=== PATIENT | male | born 1950 | race Caucasian/White ===

== ENCOUNTER 2017-03-25 10:18 | Day surgery (SDC) | payer OTHER ==
[2017-03-25] MEDS: NS 1,000 ML IV (10:30)
[2017-03-25] MEDS ORDERED: PROPOFOL 200 MG/20 ML VIAL As Ordered ×2 (12:01)
[2017-03-25] MEDS ORDERED: LIDOCAINE 2% INJ 100 MG/5 ML SDV (FOR ANES.) As Ordered (12:01)
== END 2017-03-25 12:36 | disposition home or self-care (01) ==
LOC: M OPP 10:18
DX: Z12.11 Encounter for screening for malignant neoplasm of colon (principal); Z86.010 Personal history of colon polyps; K62.1 Rectal polyp; K57.30 Diverticulosis of large intestine without perforation or abscess without bleeding; E78.5 Hyperlipidemia, unspecified; E03.9 Hypothyroidism, unspecified; E66.9 Obesity, unspecified; Z79.899 Other long term (current) drug therapy; Z80.1 Family history of malignant neoplasm of trachea, bronchus and lung; Z80.8 Family history of malignant neoplasm of other organs or systems
CPT/HCPCS: 45385

== ENCOUNTER → 2020-03-13 | Outpatient (CLI) | payer MEDICARE ==
[~2020-03-13] MED LIST: ADVI200T PO; ALEV220T26 PO; ATOR1TAB19; LEVO137T2; ZYRT10CA5 PO
--- NOTE | 2020-03-13 09:21 | REP ---
INDICATION: PAIN. COMPARISON: None. TECHNIQUE: 6 views. FINDINGS: Six views of the right knee demonstrate overall normal mineralization. Joint spaces are preserved. There is no evidence of erosive change or joint effusion. However, there are mottled radiolucencies in the subcortical bone of the medial femoral condyle of uncertain significance. Minimal lateral patellar spurring is noted on sunrise view. A small subcortical cyst is suspected in the superior aspect of the patella as well. No fracture or subluxation is seen. No opaque foreign body noted. IMPRESSION: Multiple subcortical cysts in the subcortical bone of the medial femoral condyle. These may be arthritis associated cyst but are of uncertain significance. Consider MRI scanning of the right knee for further evaluation. There is mild osteoarthritic spurring of the patella also noted.. <Electronically signed by Juvenal Porter > 03/13/20 [id number]
== END ==
LOC: M WUC 08:44
PROVIDERS: ATTEND Nurse Practitioner Adult Health
DX: M17.11 Unilateral primary osteoarthritis, right knee (principal); M85.68 Other cyst of bone, other site

== ENCOUNTER → 2020-04-01 | Outpatient (CLI) | payer MEDICARE ==
[2020-04-01 15:42] LABS: BLOOD UREA NITROGEN 25 MG/DL (7-18); CREATININE FOR GFR 0.92 MG/DL (0.70-1.30); GLOMERULAR FILTRATION RATE > 60.0 (>49)
== END ==
LOC: M PLALAB 11:04
PROVIDERS: ATTEND Physician Assistant Surgical
DX: M17.11 Unilateral primary osteoarthritis, right knee (principal)

== ENCOUNTER → 2020-06-07 | Outpatient (REF) | payer MEDICARE ==
[2020-06-07 13:58] LABS: BLOOD UREA NITROGEN 24 MG/DL (7-18); CREATININE FOR GFR 0.78 MG/DL (0.70-1.30); GLOMERULAR FILTRATION RATE > 60.0 (>49)
== END ==
LOC: M PLALAB 12:50
PROVIDERS: ATTEND Physician Assistant Surgical
DX: M17.11 Unilateral primary osteoarthritis, right knee (principal)

== ENCOUNTER → 2020-06-13 | Outpatient (CLI) | payer MEDICARE ==
--- NOTE | 2020-06-13 13:15 | REP ---
INDICATION: OA,R/O SUBCORTICAL CYSTS IN MEDIAL FEMORAL CONDYLE. COMPARISON: None TECHNIQUE: Pre and post contrast 3T MRI of the right was performed utilizing various sequences. Gadolinium utilized: 20 cc ProHance FINDINGS: The anterior and posterior horns of the lateral meniscus are within normal limits. There is grade 3 signal change seen with in a truncated posterior horn of the medial meniscus. The anterior horn is within normal limits. The anterior and posterior cruciate ligaments are intact. The quadriceps and patellar tendons are intact. T2 hyper signal is seen surrounding an intact medial collateral ligament. The lateral collateral ligament is intact. The medial and lateral patellar retinacula are intact. There is a joint effusion. There is no Flores's cyst. In the medial femoral condyle there are multiple areas of subchondral T2 hyper signal and enhancement. Posteriorly, well-demarcated focal areas of subchondral T2 hyper signal is seen with cortical irregularity. In the midportion there is 7 mm sized area of subchondral T2 hyper signal with corresponding cortical compression. Anteriorly, a tiny T2 hyper signal foci are present with more mild surrounding enhancement. In the subchondral proximal medial tibial metaphysis there is a 1.8 cm sized area of T2 hyper signal and enhancement. A 5 mm sized focus of T2 hyper signal is seen in the subchondral lateral patellar facet which minimally enhances after intravenous gadolinium administration. There is tricompartmental narrowing but particularly affecting the medial compartment. There is tricompartmental cartilaginous thinning and irregularity and again, particularly affecting the medial compartment. IMPRESSION: 1. Complex tear of the medial meniscus posterior horn and likely with a bucket-handle component due to meniscal truncation. 2. Subchondral cyst formation with edema and cortical irregularities involving the medial femoral condyle as described above. Acute osteochondral lesion of the midportion cannot be ruled out. 3. 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 4. Medial collateral ligament sprain. 5. There is a joint effusion. 6. Small focal area of subchondral edema seen involving the lateral patellar facet and likely secondary to chondromalacia. 7. Mild proximal medial tibial metaphyseal edema as described above. This is likely secondary to repeated micro trauma. 8. Other findings as described above. <Electronically signed by Otilio Gongora > 06/13/20 [id number]
== END ==
LOC: M PLARAD 10:32
PROVIDERS: ATTEND Physician Assistant Surgical
DX: M19.90 Unspecified osteoarthritis, unspecified site (principal)

== ENCOUNTER → 2020-08-28 | Outpatient (CLI) | payer MEDICARE ==
[~2020-08-28] MED LIST changes: +ASPI-551 PO; -ATOR1TAB19; +ATOR1TAB19 PO; +CETI10CH PO; +COLA100C5 PO; -LEVO137T2; +LEVO137T2 PO; +NAPR-837 PO; +OCUVTAB4 PO; +OXYC-517 PO; +TYLE650T38 PO; +VITA100054 PO
== END ==
LOC: M SOG 13:54
PROVIDERS: ATTEND Orthopaedic Surgery Adult Reconstructive Orthopaedic Surgery
DX: M25.561 Pain in right knee (principal); M25.562 Pain in left knee

== ENCOUNTER → 2020-09-25 | Outpatient (CLI) | payer MEDICARE ==
[~2020-09-25] MED LIST changes: -ASPI-551 PO; +ATOR1TAB19; -ATOR1TAB19 PO; -COLA100C5 PO; +LEVO137T2; -LEVO137T2 PO; -OXYC-517 PO
== END ==
LOC: M LABSMTC 11:09
PROVIDERS: ATTEND Anesthesiology
DX: Z01.818 Encounter for other preprocedural examination (principal); Z11.52 Encounter for screening for COVID-19

== ENCOUNTER 2020-09-30 10:29 | Day surgery (SDC) | payer MEDICARE ==
[~2020-09-30] VITALS: Ht 177.8 cm; Wt 94.7 kg
[~2020-09-30 10:29] MED LIST changes: +ACETAMINOPHEN 500 MG TAB PO ONE; -ATOR1TAB19; +ATOR1TAB19 PO; +CelecoXIB 400 MG CAP PO ONE; +GABAPENTIN 300 MG CAP PO ONE; -LEVO137T2; +LEVO137T2 PO; +LIDOCAINE 1% MDV 20ML VIAL SQ PRN; +LR 1,000 ML IV ONE; +ONDANSETRON 4MG/2ML VIAL IV ONE
[2020-09-30] MEDS ORDERED: propofoL 200 MG/20 ML VIAL As Ordered ONE ×2 (12:04→13:12)
[2020-09-30] MEDS ORDERED: fentaNYL 100 MCG/2 ML INJECTION (J3010) As Ordered ONE (12:04)
[2020-09-30] MEDS ORDERED: MIDAZOLAM INJ 2MG/2ML VIAL (J2250 PER 1MG) As Ordered ONE (12:05)
[2020-09-30] MEDS ORDERED: LIDOCAINE 2% 100MG/5ML SDV (FOR ANES.) As Ordered ONE (13:03)
[2020-09-30] MEDS ORDERED: BUPIVACAINE/EPIN 0.5% 30 ML VIAL As Ordered ONE (13:10)
[2020-09-30] MEDS ORDERED: EPINEPHrine 1MG/ML INJ 30ML MD-VIAL As Ordered ONE (13:10)
[2020-09-30] MEDS ORDERED: dexameTHASONE 4 MG/ML 1ML VIAL (J1100 PER 1MG) As Ordered ONE (13:50)
[2020-09-30] MEDS ORDERED: ePHEDrine INJ 50 MG/ML VIAL As Ordered ONE (13:56)
[2020-09-30] MEDS ORDERED: ePHEDrine SULFATE 25 MG/5 ML(5MG/ML) SYRINGE As Ordered ONE (13:56)
[2020-09-30] MEDS ORDERED: ONDANSETRON 4MG/2ML VIAL IV PRN (15:10)
[2020-09-30] MEDS ORDERED: METOCLOPRAMIDE INJ 10MG/2ML VIAL (J2765 PER 1) IV PRN (15:10)
[2020-09-30] MEDS ORDERED: fentaNYL 100 MCG/2 ML INJECTION (J3010) IV PRN (15:10)
[2020-09-30] MEDS ORDERED: PERCOCET 5MG/325MG TAB PO PRN (15:10)
[2020-09-30] MEDS ORDERED: LR 1,000 ML IV SCH ×2 (15:10→15:15)
[2020-09-30] MEDS ORDERED: oxyCODONE 5MG TAB PO PRN (15:15)
--- NOTE | 2020-09-30 15:23 | ROOPDOC ---
[facility] Report Of Operation Report of Operation DATE OF PROCEDURE: 09/30/20 PREPROCEDURE DIAGNOSES: Right knee meniscal tear POSTPROCEDURE DIAGNOSES: Right knee medial meniscal tear Grade 1 ACL Grade 4 medial compartment changes PROCEDURE: Right knee arthroscopy Medial meniscal debridement Debridement of scar tissue and plica Chondroplasty and microfracture to medial femoral condyle SURGEON: Ricardo Hidalgo MD PROCESSING TECHNICIAN: None ANESTHESIA: General ESTIMATED BLOOD LOSS: Less than 10 mL mL. COMPLICATIONS: No known complications. REMARKS: Tourniquet inflated for 40 minutes. PROCEDURE NOTE: The patient was seen in the preoperative area, Consent was reviewed or obtained and the appropriate extremity was marked. DESCRIPTION OF PROCEDURE: The patient was brought to the operating room and after a surgical pause, the anesthetic was induced. The patient was appropriately positioned supine on the operating room table. A tourniquet was applied to the appropriate thigh with appropriate padding. Side bolster was also applied to help with manipulation of the extremity during the procedure. The extremity was prepped with chlorhexidine. The patient was draped in the normal sterile fashion. After a surgical safety checklist was performed, and a timeout was performed, the tourniquet was inflated and the incision over the lateral portal site was carried out. The trocar was introduced using the blunt tip. The scope was introduced and the fluid was allowed to run until the joint was insufflated with the scope in the patellofemoral joint. A diagnostic arthroscopy was then carried out. A medial portal was established using needle localization technique. A superior lateral portal was also established using needle localization. Patellofemoral joint: Plica debrided with shaver Patella: Grade 2-3 change Medial gutter: Clear Lateral gutter: Clear Medial meniscus: Truncated with peripheral tears debrided with punch and shaver Medial femoral condyle: Diffuse grade 4 changes, distal and posteriorly; grade 3 changes anteriorly debrided with shaver and microfracture technique with 2 mm drill bit for arthroscopic shaver Medial tibial condyle: Diffuse cartilage thinning with grade 4 changes to the posterior third ACL: Grade 1 with stranding Lateral meniscus: Lateral compartment was tight however the lateral meniscus appeared to be intact Lateral femoral condyle: Grade 1 Lateral tibial plateau: Grade 1 Once the arthroscopic procedure was completed, the fluid was removed from the joint and the wounds were closed with 3. 0 Monocryl suture. Local anesthetic of 0.5% Marcaine with epi was instilled in the soft tissues and into the joint region. Mastisol was applied to the skin followed by Steri-Strips and Telfa and Tegaderm dressing. This was reinforced with an abdominal pad and a large Tavon wrap was placed up to the level of the thigh from the foot and ankle. The patient tolerated the procedure well with no known complications. The patient will be seen for follow-up within 2 weeks, as scheduled. Postoperative instruction booklet was provided. The patient will have prescriptions for oxycodone for pain, baby aspirin for DVT prophylaxis, and senna for constipation. Tylenol and ibuprofen can be used as directed by bottle instructions. Prescriptions were sent to [facility] on [address], as requested. The patient appears to be doing quite well in recovery when I spoke with him and in no significant pain or discomfort. He has moderate to severe arthritic change, particularly to the medial compartment and if his symptoms become severe enough he would be a candidate for a total knee replacement. Thank you for referring this patient to my care, RICARDO HIDALGO MD Sep 30, 2020 15:22
[2020-09-30 17:25] VITALS: BP 164/88
== END 2020-09-30 17:37 | disposition home or self-care (01) ==
LOC: M SDC 10:29
PROVIDERS: ATTEND Orthopaedic Surgery Adult Reconstructive Orthopaedic Surgery
DX: M23.231 Derangement of other medial meniscus due to old tear or injury, right knee (principal); M67.51 Plica syndrome, right knee; E78.5 Hyperlipidemia, unspecified; E03.9 Hypothyroidism, unspecified; K57.90 Diverticulosis of intestine, part unspecified, without perforation or abscess without bleeding; R06.83 Snoring; Z79.899 Other long term (current) drug therapy
CPT/HCPCS: 29881; J1100; J2250; J2405; J3010

== ENCOUNTER → 2021-01-21 | Outpatient (RCR) | payer MEDICARE ==
[~2021-01-21] MED LIST changes: -ACETAMINOPHEN 500 MG TAB PO ONE; +ASPI-551 PO; +COLA100C5 PO; -CelecoXIB 400 MG CAP PO ONE; -GABAPENTIN 300 MG CAP PO ONE; -LIDOCAINE 1% MDV 20ML VIAL SQ PRN; -LR 1,000 ML IV ONE; -ONDANSETRON 4MG/2ML VIAL IV ONE; +OXYC-517 PO
== END ==
LOC: M PT 08:09
PROVIDERS: ATTEND Orthopaedic Surgery Adult Reconstructive Orthopaedic Surgery
DX: M17.9 Osteoarthritis of knee, unspecified (principal)

== ENCOUNTER → 2021-02-18 | Outpatient (CLI) | payer MEDICARE | LOC: M PLAIMG 13:15 | PROVIDERS: ATTEND Orthopaedic Surgery Adult Reconstructive Orthopaedic Surgery | DX: M17.11 Unilateral primary osteoarthritis, right knee (principal) ==

== ENCOUNTER → 2021-02-27 | Outpatient (CLI) | payer MEDICARE ==
[~2021-02-27] MED LIST changes: -ASPI-551 PO; -COLA100C5 PO; -OXYC-517 PO
== END ==
LOC: M LABSMTC 10:30
PROVIDERS: ATTEND Anesthesiology
DX: Z01.818 Encounter for other preprocedural examination (principal); Z11.52 Encounter for screening for COVID-19

== ENCOUNTER 2021-03-04 07:15 | Inpatient (IN) | payer MEDICARE ==
[2021-03-04] VITALS (9 sets, daily range): BP systolic 115–193; BP diastolic 63–91
[~2021-03-04] VITALS: Ht 177.8 cm; Wt 97.7 kg
[~2021-03-04 07:15] MED LIST changes: +ACETAMINOPHEN 500 MG TAB PO ONE; +LR 1,000 ML IV ONE; +NAPROXEN 250 MG TAB PO ONE; +NS 1,000 ML IV ONE; +PREGABALIN 25 MG CAP (LYRICA) PO ONE; +ROPIVA 125MG/EPINEPH 0.25MG/CLONID 40MCG/KETOR 15MG IN NS 50ML SYRINGE PA ONE; +ceFAZolin SOD 2 GM in IV 1 EA IV ONE; +dexameTHASONE 4 MG/ML 1ML VIAL (J1100 PER 1MG) IV ONE
[2021-03-04] MEDS ORDERED: propofoL 200 MG/20 ML VIAL As Ordered ONE (08:08)
[2021-03-04] MEDS ORDERED: LIDOCAINE 2% 100MG/5ML SDV (FOR ANES.) As Ordered ONE (08:08)
[2021-03-04] MEDS ORDERED: fentaNYL 100 MCG/2 ML INJECTION (J3010) As Ordered ONE (08:09)
[2021-03-04] MEDS ORDERED: MIDAZOLAM INJ 2MG/2ML VIAL (J2250 PER 1MG) As Ordered ONE (08:09)
[2021-03-04] MEDS ORDERED: TRANEXAMIC ACID 100 MG/ML 10ML VIAL As Ordered ONE (08:19)
[2021-03-04] MEDS ORDERED: ROCURONIUM BROMIDE 50 MG/5 ML VIAL As Ordered ONE (08:38)
[2021-03-04] MEDS ORDERED: PHENYLephrine 500MCG 5ML (100MCG/ML) SYRINGE As Ordered ONE (08:51)
[2021-03-04] MEDS ORDERED: HYDROmorphone HCL 2MG/ML 1ML VIAL As Ordered ONE (09:16)
[2021-03-04] MEDS ORDERED: ePHEDrine SULFATE 25 MG/5 ML(5MG/ML) SYRINGE As Ordered ONE ×2 (09:16→10:34)
[2021-03-04] MEDS ORDERED: ONDANSETRON 4MG/2ML VIAL As Ordered ONE (09:17)
[2021-03-04] MEDS ORDERED: METOCLOPRAMIDE INJ 10MG/2ML VIAL (J2765 PER 1) As Ordered ONE (09:17)
[2021-03-04] MEDS ORDERED: SUGAMMADEX SODIUM 500 MG/5 ML VIAL (BRIDION) As Ordered ONE (09:18)
[2021-03-04] MEDS ORDERED: oxyCODONE 5MG TAB PO PRN ×5 (12:05→13:50)
[2021-03-04] MEDS ORDERED: ACETAMINOPHEN 500 MG TAB PO PRN (12:05)
[2021-03-04] MEDS ORDERED: MORPHINE 2 MG/ML 1ML VIAL (J2270) IV PRN (12:15)
[2021-03-04] MEDS ORDERED: fentaNYL 100 MCG/2 ML INJECTION (J3010) IV PRN (12:15)
[2021-03-04] MEDS ORDERED: LR 1,000 ML IV SCH ×2 (12:15→12:20)
[2021-03-04] MEDS ORDERED: ONDANSETRON 4MG/2ML VIAL IV PRN ×2 (12:15→12:20)
[2021-03-04] MEDS ORDERED: hydrALAZINE 20MG/ML 1ML VIAL (J0360 PER 20MG) IV PRN (12:20)
[2021-03-04] MEDS ORDERED: LABETALOL 100MG/20ML VIAL IV PRN (12:20)
[2021-03-04] MEDS: ceFAZolin SOD 2 GM in IV 1 EA IV SCH ×2 (12:56→20:31)
[2021-03-04 13:13] LABS: HEMATOCRIT 40.8 % (42.0-52.0); HEMOGLOBIN 13.5 g/dl (13.5-17.5); MEAN CORPUSCULAR HEMOGLOBIN 30.1 pg (27.0-33.0); MEAN CORPUSCULAR HGB CONC 33.1 g/dl (32.0-36.5); MEAN CORPUSCULAR VOLUME 91.1 fl (80.0-96.0); PLATELET COUNT, AUTOMATED 204 10^3/uL (150-450); RED BLOOD COUNT 4.48 10^6/uL (4.30-6.10); WHITE BLOOD COUNT 9.6 10^3/uL (4.0-10.0)
[2021-03-04 13:46] LABS: BLOOD UREA NITROGEN 22 MG/DL (7-18); CALCIUM LEVEL 8.8 MG/DL (8.8-10.2); CARBON DIOXIDE LEVEL 27 MEQ/L (21-32); CHLORIDE LEVEL 105 MEQ/L (98-107); GLOMERULAR FILTRATION RATE > 60.0 (>49); GLUCOSE, FASTING 169 MG/DL (70-100); PHOSPHORUS LEVEL 3.6 MG/DL (2.5-4.9); POTASSIUM SERUM 3.9 MEQ/L (3.5-5.1); SODIUM LEVEL 140 MEQ/L (136-145)
[2021-03-04] MEDS ORDERED: SENNA 8.6 MG TAB (SENOKOT) PO PRN (13:50)
[2021-03-04] MEDS ORDERED: traMADol 50 MG TAB PO PRN (13:50)
[2021-03-04] MEDS: ACETAMINOPHEN TAB 650MG DOSE (2X325MG) PO SCH ×2 (17:06→23:07)
[2021-03-04] MEDS: ASPIRIN 81MG ENTERIC TABLET PO SCH (20:30)
[2021-03-04] MEDS: NAPROXEN 250 MG TAB PO SCH (20:31)
[2021-03-04] MEDS: DOCUSATE SODIUM 100MG CAPSULE PO SCH (20:31)
[2021-03-04] MEDS ORDERED: ATORVASTATIN 10 MG TAB PO SCH (21:00)
[2021-03-05] MEDS: ACETAMINOPHEN TAB 650MG DOSE (2X325MG) PO SCH ×2 (05:20→12:00)
[2021-03-05 06:00] VITALS: BP 119/63
[2021-03-05] MEDS ORDERED: LEVOTHYROXINE 137MCG TABLET (0.137MG) PO SCH (06:00)
[2021-03-05 06:36] LABS: HEMATOCRIT 35.1 % (42.0-52.0); HEMOGLOBIN 11.6 g/dl (13.5-17.5); MEAN CORPUSCULAR HEMOGLOBIN 30.1 pg (27.0-33.0); MEAN CORPUSCULAR VOLUME 91.2 fl (80.0-96.0); PLATELET COUNT, AUTOMATED 182 10^3/uL (150-450); RED BLOOD COUNT 3.85 10^6/uL (4.30-6.10); WHITE BLOOD COUNT 12.1 10^3/uL (4.0-10.0)
[2021-03-05 07:08] LABS: BLOOD UREA NITROGEN 19 MG/DL (7-18); CALCIUM LEVEL 8.5 MG/DL (8.8-10.2); CARBON DIOXIDE LEVEL 27 MEQ/L (21-32); CHLORIDE LEVEL 107 MEQ/L (98-107); CREATININE FOR GFR 0.92 MG/DL (0.70-1.30); GLOMERULAR FILTRATION RATE > 60.0 (>49); GLUCOSE, FASTING 107 MG/DL (70-100); PHOSPHORUS LEVEL 3.7 MG/DL (2.5-4.9); SODIUM LEVEL 141 MEQ/L (136-145)
[2021-03-05] MEDS ORDERED: FERROUS SULFATE 325MG TAB PO SCH (09:00)
[2021-03-05] MEDS ORDERED: ASCORBIC ACID 500 MG TAB PO SCH (09:00)
[2021-03-05] MEDS: ASPIRIN 81MG ENTERIC TABLET PO SCH (09:18)
[2021-03-05] MEDS: DOCUSATE SODIUM 100MG CAPSULE PO SCH (09:20)
[2021-03-05] MEDS: NAPROXEN 250 MG TAB PO SCH (09:20)
[2021-03-05] MEDS ORDERED: COLA100C5 PO (10:59)
[2021-03-05] MEDS ORDERED: ASPI-551 PO (10:59)
[2021-03-05] MEDS ORDERED: OXYC-517 PO (11:01)
== END 2021-03-05 12:00 | disposition home health service (06) | DRG 470 ==
LOC: M SDC 07:15 → M MS5PR 11:46
PROVIDERS: ADMIT Internal Medicine; ATTEND Internal Medicine
PROC: 0SRC0JZ Replacement of Right Knee Joint with Synthetic Substitute, Open Approach (ICD-10-PCS; principal; 2021-03-04 08:30)
DX: M17.11 Unilateral primary osteoarthritis, right knee (principal); Z79.899 Other long term (current) drug therapy; Z79.82 Long term (current) use of aspirin; E03.9 Hypothyroidism, unspecified; E78.5 Hyperlipidemia, unspecified

== ENCOUNTER → 2021-03-11 | Outpatient (REF) | payer MEDICARE ==
[~2021-03-11] MED LIST changes: -ACETAMINOPHEN 500 MG TAB PO ONE; +ASPI-551 PO; +COLA100C5 PO; -LR 1,000 ML IV ONE; -NAPROXEN 250 MG TAB PO ONE; -NS 1,000 ML IV ONE; +OXYC-517 PO; -PREGABALIN 25 MG CAP (LYRICA) PO ONE; -ROPIVA 125MG/EPINEPH 0.25MG/CLONID 40MCG/KETOR 15MG IN NS 50ML SYRINGE PA ONE; -ceFAZolin SOD 2 GM in IV 1 EA IV ONE; -dexameTHASONE 4 MG/ML 1ML VIAL (J1100 PER 1MG) IV ONE
[2021-03-11 15:31] LABS: BASO % 0.4 % (0.0-1.0); EOS # 0.1 10^3/uL (0.0-0.5); EOS % 0.9 % (0.0-3.0); HEMATOCRIT 35.3 % (42.0-52.0); HEMOGLOBIN 11.3 g/dl (13.5-17.5); LYMPH # 1.5 10^3/uL (1.5-5.0); LYMPH % 15.2 % (24.0-44.0); MEAN CORPUSCULAR HEMOGLOBIN 29.3 pg (27.0-33.0); MEAN CORPUSCULAR VOLUME 91.5 fl (80.0-96.0); MONO # 0.8 10^3/uL (0.0-0.8); MONO % 8.4 % (2.0-8.0); NEUTROPHILS # 7.4 10^3/uL (1.5-8.5); NEUTROPHILS % 74.6 % (36.0-66.0); PLATELET COUNT, AUTOMATED 287 10^3/uL (150-450); RED BLOOD COUNT 3.86 10^6/uL (4.30-6.10); WHITE BLOOD COUNT 9.9 10^3/uL (4.0-10.0)
== END ==
LOC: M SHH 15:09
PROVIDERS: ATTEND Orthopaedic Surgery Adult Reconstructive Orthopaedic Surgery
DX: Z47.89 Encounter for other orthopedic aftercare (principal); Z96.651 Presence of right artificial knee joint

== ENCOUNTER → 2021-03-17 | Outpatient (CLI) | payer MEDICARE | LOC: M SOG 09:06 | PROVIDERS: ATTEND Orthopaedic Surgery Adult Reconstructive Orthopaedic Surgery | DX: Z96.651 Presence of right artificial knee joint (principal) ==

== ENCOUNTER 2021-04-17 12:57 | Outpatient (RCR) | payer MEDICARE | END 2021-04-21 | LOC: M PT 12:57 | PROVIDERS: ATTEND Orthopaedic Surgery Adult Reconstructive Orthopaedic Surgery | DX: Z47.89 Encounter for other orthopedic aftercare (principal); Z96.651 Presence of right artificial knee joint ==

== ENCOUNTER 2021-04-22 12:59 | Outpatient (RCR) | payer MEDICARE | END 2021-05-22 | LOC: M PT 12:59 | PROVIDERS: ATTEND Orthopaedic Surgery Adult Reconstructive Orthopaedic Surgery | DX: Z47.1 Aftercare following joint replacement surgery (principal); Z96.651 Presence of right artificial knee joint ==

== ENCOUNTER → 2021-04-25 | Outpatient (REF) | payer MEDICARE | LOC: M LAB REF 11:03 | PROVIDERS: ATTEND Nurse Practitioner Adult Health | DX: R35.1 Nocturia (principal) ==

== ENCOUNTER → 2022-03-05 | Outpatient (CLI) | payer MEDICARE | LOC: M SOG 08:33 | PROVIDERS: ATTEND Orthopaedic Surgery Adult Reconstructive Orthopaedic Surgery | DX: Z96.651 Presence of right artificial knee joint (principal) ==

== ENCOUNTER → 2023-10-29 | Outpatient (CLI) | payer MEDICARE | LOC: M WUC 13:49 | PROVIDERS: ATTEND Nurse Practitioner Family | DX: M79.644 Pain in right finger(s) (principal) ==